=== PATIENT | female | born 1990 | race American Indian/Alaskan Native ===

== ENCOUNTER 2017-05-25 21:16 | Emergency (ER) | payer MEDICARE ==
[2017-05-25 22:29] LABS: Basophils % (Auto) 0.6 % (0.0-1.8); Eosinophils % (Auto) 0.8 % (0.0-4.3); Hematocrit 37.8 % (30.3-42.9); Hemoglobin 11.7 gm/dl (10.1-14.3); Mean Corpuscular HGB Conc 31 % (30-34); Mean Corpuscular Volume 74 fl (79-97); Platelet Count 254 K/mm3 (140-440); Red Cell Distribution Width 15.4 % (13.2-15.2); White Blood Count 9.5 K/mm3 (4.5-11.0)
[2017-05-25 22:31] LABS: Mean Corpuscular Hemoglobin 23 pg (28-32)
[2017-05-25 22:40] LABS: Anion Gap 18 mmol/L; Blood Urea Nitrogen 8 mg/dL (7-17); Calcium 8.9 mg/dL (8.4-10.2); Carbon Dioxide 23 mmol/L (22-30); Chloride 101.2 mmol/L (98-107); Glucose 86 mg/dL (65-100); Potassium 4.5 mmol/L (3.6-5.0); Sodium 138 mmol/L (137-145)
[2017-05-25 23:43] LABS: Urine Drugs of Abuse Note Disclamer
[2017-05-25 23:59] LABS: Bilirubin,Urine NEG (Negative); Blood,Urine LG (Negative); Ketones,Urine NEG (Negative); Leukocyte Esterase,Urine TR (Negative); Mucus,Urine 3+ /HPF; Nitrite,Urine NEG (Negative); Protein,Urine <15 mg/dL mg/dL (Negative); Urobilinogen,Urine < 2.0 mg/dL (<2.0)
--- NOTE | 2017-05-26 05:52 | Emergency Department Report ---
ED Psych HPI - General Chief Complaint: Psych Stated Complaint: SUICIDAL/IDEAS TO HURT OTHERS Time Seen by Provider: 05/26/17 01:17 Source: family Mode of arrival: Ambulatory Limitations: Other (MR) - History of Present Illness Initial Comments: 26-year-old female with a past medical history of MR, schizoaffective disorder, and psychosis presents to the hospital with combative behavior and suicidal and homicidal ideation. Her cant hooker/sister is at the bedside. Apparently patient pulled out a knife and threatened to kill her family member in herself. Patient is here voices telling her to kill herself and others. Patient's behavior has been escalating over the last several days despite compliance with medication. No physical complaints reported. - Related Data Allergies Allergy/AdvReac Type Severity Reaction Status Date / Time No Known Allergies Allergy Verified 05/25/17 21:26 ED Review of Systems ROS: Stated complaint: SUICIDAL/IDEAS TO HURT OTHERS Other details as noted in HPI Comment: All other systems reviewed and negative Other: Constitutional: No fevers chills Neck: Denies pain Respiratory: Denies cough wheezing shortness of breath Cardiovascular: Denies chest pain, palpitations, syncope GI: Denies abdominal pain, nausea, vomiting, diarrhea : Denies dysuria Musculoskeletal: Denies back pain Skin: Denies rash, lesions, erythema Neurologic: Denies headache, numbness, weakness Psychiatric: as per hpi ED Past Medical Hx - Past Medical History Previous Medical History?: Yes Hx Psychiatric Treatment: Yes (MR / SCHIZO AFFECTIVE / PSYCHOSIS) - Surgical History Past Surgical History?: No - Social History Smoking Status: Never Smoker Substance Use Type: None ED Physical Exam - General Limitations: No Limitations - Other Other exam information: General: No limitations, patient is alert in no acute distress Head exam: Atraumatic, normocephalic Eyes exam: Normal appearance ENT: Moist mucous membrane, normal oropharynx Neck exam: Normal inspection, full range of motion, no meningismus nontender Respiratory exam: Clear to auscultation bilateral, no wheezes, rales, crackles Cardiovascular: Normal rate and rhythm, normal heart sounds Abdomen: Soft, nondistended, and nontender, with normal bowel sounds, no rebound, or guarding Extremity: Full range of motion normal inspection no deformity Back: Normal Inspection, full range of motion, no tenderness Neurologic: Alert, , cranial nerves intact, no motor or sensory deficit Psychiatric: normal affect, normal mood Skin: Warm, dry, intact ED Course Vital Signs 05/25/17 05/26/17 05/26/17 21:26 01:00 01:36 Temperature 98.3 F 98.6 F Pulse Rate 55 L 56 L Respiratory 16 18 18 Rate Blood Pressure 130/81 119/71 O2 Sat by Pulse 100 100 99 Oximetry - Reevaluation(s) Reevaluation #1: 05/26/17 PT and stable and cooperative and ED ED Medical Decision Making - Lab Data Result diagrams: 05/25/17 22:12 05/25/17 22:12 Lab Results 05/25/17 05/25/17 05/25/17 Range/Units 22:12 22:12 22:12 WBC 9.5 (4.5-11.0) K/mm3 RBC 5.10 H (3.65-5.03) M/mm3 Hgb 11.7 (10.1-14.3) gm/dl Hct 37.8 (30.3-42.9) % MCV 74 L (79-97) fl MCH 23 L (28-32) pg MCHC 31 (30-34) % RDW 15.4 H (13.2-15.2) % Plt Count 254 (140-440) K/mm3 Lymph % (Auto) 44.4 H (13.4-35.0) % [place] % (Auto) 5.6 (0.0-7.3) % Eos % (Auto) 0.8 (0.0-4.3) % Baso % (Auto) 0.6 (0.0-1.8) % Lymph # 4.2 (1.2-5.4) K/mm3 [place] # 0.5 (0.0-0.8) K/mm3 Eos # 0.1 (0.0-0.4) K/mm3 Baso # 0.1 (0.0-0.1) K/mm3 Seg Neutrophils % 48.6 (40.0-70.0) % Seg Neutrophils # 4.6 (1.8-7.7) K/mm3 Sodium 138 (137-145) mmol/L Potassium 4.5 (3.6-5.0) mmol/L Chloride 101.2 (98-107) mmol/L Carbon Dioxide 23 (22-30) mmol/L Anion Gap 18 mmol/L BUN 8 (7-17) mg/dL Creatinine 0.5 L (0.7-1.2) mg/dL Estimated GFR > 60 ml/min BUN/Creatinine Ratio 16.00 % Glucose 86 (65-100) mg/dL Calcium 8.9 (8.4-10.2) mg/dL Urine Color (Yellow) Urine Turbidity (Clear) Urine pH (5.0-7.0) Ur Specific [place] (1.003-1.030) Urine Protein (Negative) mg/dL Urine Glucose (UA) (Negative) mg/dL Urine Ketones (Negative) mg/dL Urine Blood (Negative) Urine Nitrite (Negative) Urine Bilirubin (Negative) Urine Urobilinogen (<2.0) mg/dL Ur Leukocyte Esterase (Negative) Urine WBC (Auto) (0.0-6.0) /HPF Urine RBC (Auto) (0.0-6.0) /HPF U Epithel Cells (Auto) (0-13.0) /HPF Hyaline Casts /LPF Urine Mucus /HPF Urine Opiates Screen Urine Methadone Screen Ur Barbiturates Screen Ur Phencyclidine Scrn Ur Amphetamines Screen U Benzodiazepines Scrn Urine Cocaine Screen U Marijuana (THC) Screen Drugs of Abuse Note Plasma/Serum Alcohol < 0.01 (0-0.07) gm% 05/25/17 05/25/17 Range/Units 23:11 23:11 WBC (4.5-11.0) K/mm3 RBC (3.65-5.03) M/mm3 Hgb (10.1-14.3) gm/dl Hct (30.3-42.9) % MCV (79-97) fl MCH (28-32) pg MCHC (30-34) % RDW (13.2-15.2) % Plt Count (140-440) K/mm3 Lymph % (Auto) (13.4-35.0) % [place] % (Auto) (0.0-7.3) % Eos % (Auto) (0.0-4.3) % Baso % (Auto) (0.0-1.8) % Lymph # (1.2-5.4) K/mm3 [place] # (0.0-0.8) K/mm3 Eos # (0.0-0.4) K/mm3 Baso # (0.0-0.1) K/mm3 Seg Neutrophils % (40.0-70.0) % Seg Neutrophils # (1.8-7.7) K/mm3 Sodium (137-145) mmol/L Potassium (3.6-5.0) mmol/L Chloride (98-107) mmol/L Carbon Dioxide (22-30) mmol/L Anion Gap mmol/L BUN (7-17) mg/dL Creatinine (0.7-1.2) mg/dL Estimated GFR ml/min BUN/Creatinine Ratio % Glucose (65-100) mg/dL Calcium (8.4-10.2) mg/dL Urine Color Yellow (Yellow) Urine Turbidity Clear (Clear) Urine pH 5.0 (5.0-7.0) Ur Specific [place] 1.024 (1.003-1.030) Urine Protein <15 mg/dl (Negative) mg/dL Urine Glucose (UA) Neg (Negative) mg/dL Urine Ketones Neg (Negative) mg/dL Urine Blood Lg (Negative) Urine Nitrite Neg (Negative) Urine Bilirubin Neg (Negative) Urine Urobilinogen < 2.0 (<2.0) mg/dL Ur Leukocyte Esterase Tr (Negative) Urine WBC (Auto) 3.0 (0.0-6.0) /HPF Urine RBC (Auto) 24.0 (0.0-6.0) /HPF U Epithel Cells (Auto) 5.0 (0-13.0) /HPF Hyaline Casts 1 /LPF Urine Mucus 3+ /HPF Urine Opiates Screen Presumptive negative Urine Methadone Screen Presumptive negative Ur Barbiturates Screen Presumptive negative Ur Phencyclidine Scrn Presumptive negative Ur Amphetamines Screen Presumptive negative U Benzodiazepines Scrn Presumptive negative Urine Cocaine Screen Presumptive negative U Marijuana (THC) Screen Presumptive negative Drugs of Abuse Note Disclamer Plasma/Serum Alcohol (0-0.07) gm% - Medical Decision Making Patient medically clear for psychiatric transfer and admission. 1013 and transfer forms have been signed. Current medications will be continued pending psychiatric treatment - Differential Diagnosis psychosis,, MR, schizoaffective disorder, suicidal ideation, homicidal idea Critical Care Time: No Critical care attestation.: If time is entered above; I have spent that time in minutes in the direct care of this critically ill patient, excluding procedure time. ED Disposition Clinical Impression: Psychosis, Mental retardation, Schizoaffective disorder, Suicidal ideation, Homicidal ideations Disposition: DC/TX-65 PSY HOSP/PSY UNIT Is pt being admited?: No Does the pt Need Aspirin: No Condition: Stable Time of Disposition: 05:52 (awaiting acceptance)
[2017-05-26 08:28] VITALS: BP 116/57
[2017-05-26] MEDS ORDERED: NON-FORMULARY (Risperidone [Risperdal] 2 MG) PO SCH (10:00)
[2017-05-26] MEDS ORDERED: RisperDAL PO SCH (10:00)
--- NOTE | 2017-05-26 15:07 | Consultation ---
History of Present Illness - Reason for Consult Consult date: 05/26/17 Reason for consult: Mental Health Evaluation Requesting physician: BECKY RAMÍREZ - Chief Complaint Chief complaint: "I was going to use a knife" - History of Present Psychiatric Illness 26-year-old female with a past medical history of MR, schizoaffective disorder, and psychosis presents to the hospital with combative behavior and suicidal and homicidal ideation. Today patient calm and cooperative, but tangential during the assessment. She was talking low and had to be redirected multiple time to keep her engaged in the conversation. She stated that voices were telling her to kill herself and some of her family prior to being admitted to [facility]. She stated that she would have used a knife. She kept staying, "Do you hear that" throughout the conversation. She denies VH's and depression. She denies recreational drug use and alcohol consumption (etoh). Medications and Allergies Allergies Allergy/AdvReac Type Severity Reaction Status Date / Time No Known Allergies Allergy Verified 05/25/17 21:26 Home Medications Medication Instructions Recorded Confirmed Last Taken Type risperiDONE [RisperDAL] 2 mg PO QDAY 05/26/17 05/26/17 Unknown History Past psychiatric history - Past Medical History Past Medical History: hypertension Past Surgical History: No surgical history - past Psychiatric treatment and history Psych: Psychosis psychiatric treatment history: [facility] for inpatient services. [facility]x. - Social History Social history: lives with family Mental Status Exam - Vital signs Last Vital Signs Temp 98.3 F 05/26/17 08:26 Pulse 81 05/26/17 08:26 Resp 20 05/26/17 08:26 BP 116/57 05/26/17 08:26 Pulse Ox 100 05/26/17 08:26 - Exam Narrative exam: ROS: (+) psychotic MSE: Appearance: calm, cooperative Behavior: regular eye contact Speech: low rate and tone Mood: "okay" Affect: labile Thought Process: tangential Thought Content: denies VH's Motor Activity: lying in bed Cognition: A/Ox 3 Insight: limited Judgment: limited Results Result Diagrams: 05/25/17 22:12 05/25/17 22:12 Abnormal lab results 05/25/17 05/25/17 Range/Units 22:12 22:12 RBC 5.10 H (3.65-5.03) M/mm3 MCV 74 L (79-97) fl MCH 23 L (28-32) pg RDW 15.4 H (13.2-15.2) % Lymph % (Auto) 44.4 H (13.4-35.0) % Creatinine 0.5 L (0.7-1.2) mg/dL All other labs normal. Assessment and Plan Assessment and plan: Impression: Historical Dx: Schizoaffective DO. Unspecified Mood DO with psychotic features. Today patient calm and cooperative, but tangential during the assessment. Per ER note. patient has DDx: R/O Bipolar Recommendation/Plan: Continue 1013 with placement to [facility] today.
== END 2017-05-26 12:00 ==
LOC: ED 21:16 → EEVIPCON 21:16 → ED 05-26 12:00
DX: R45.851 Suicidal ideations (principal); R45.850 Homicidal ideations; F20.9 Schizophrenia, unspecified; F29 Unspecified psychosis not due to a substance or known physiological condition; F79 Unspecified intellectual disabilities
CPT/HCPCS: 36415; 80048; 80307; 81001; 81025; 85025; 99285; G0480; 80320

== ENCOUNTER 2019-02-10 12:10 | Emergency (ER) | payer MEDICARE ==
[2019-02-10 13:50] LABS: Bacteria,Urine 1+ /HPF (Negative); Bilirubin,Urine NEG (Negative); Blood,Urine NEG (Negative); Color,Urine Yellow (Yellow); Mucus,Urine 3+ /HPF; Protein,Urine <15 mg/dL mg/dL (Negative); Urobilinogen,Urine < 2.0 mg/dL (<2.0)
[2019-02-10 13:54] LABS: Amphetamine Screen,Urine PRESUMPTIVE NEGATIVE; Benzodiazepines Screen,Urine PRESUMPTIVE NEGATIVE; Cannabinoid Screen,Urine PRESUMPTIVE NEGATIVE; Cocaine Screen,Urine PRESUMPTIVE NEGATIVE; Methadone Screen,Urine PRESUMPTIVE NEGATIVE; Opiate Screen,Urine PRESUMPTIVE NEGATIVE
--- NOTE | 2019-02-10 14:25 | Emergency Department Report ---
HPI - General Chief Complaint: Psych Time Seen by Provider: 02/10/19 13:37 - HPI HPI: 28-year-old -Burmese female presents to the emergency department with complaint of suicidal ideations and auditory hallucinations. She says that she consistently hears the same voices and they are telling her to kill herself. She also says that they are telling her that they are going to "child molest me." She denies any current visual hallucinations. She has a known history of schizophrenia. She could not give me the list of her medications but says that she has been out of them for the past 3 or 4 days. ED Past Medical Hx - Past Medical History Hx Psychiatric Treatment: Yes (MR / SCHIZO AFFECTIVE / PSYCHOSIS) - Surgical History Past Surgical History?: No - Social History Smoking Status: Current Every Day Smoker - Medications Home Medications: Home Medications Medication Instructions Recorded Confirmed Last Taken Type risperiDONE [RisperDAL] 2 mg PO QDAY 05/26/17 05/26/17 Unknown History ED Review of Systems ROS: Stated complaint: SUICIDAL IDEATION Other details as noted in HPI Comment: All other systems reviewed and negative Constitutional: denies: chills, fever Eyes: denies: eye pain, vision change ENT: denies: ear pain, throat pain Respiratory: denies: cough, shortness of breath Cardiovascular: denies: chest pain, palpitations Gastrointestinal: denies: abdominal pain, vomiting Genitourinary: denies: dysuria, discharge Musculoskeletal: denies: back pain, arthralgia Skin: denies: rash, lesions Neurological: denies: headache, weakness Psychiatric: auditory hallucinations, suicidal thoughts Physical Exam - Physical Exam Vital Signs: Vital Signs 02/10/19 02/10/19 13:20 13:30 Temperature 98.6 F 98.6 F Pulse Rate 52 L 73 Respiratory 18 Rate Blood Pressure 111/62 Blood Pressure 131/79 [Right] O2 Sat by Pulse 98 Oximetry Physical Exam: GENERAL: The patient is well-developed well-nourished. HENT: Normocephalic. Atraumatic. Patient has moist mucous membranes. EYES: Extraocular motions are intact. NECK: Supple. Trachea is midline. CHEST/LUNGS: Clear to auscultation. There is no respiratory distress noted. HEART/CARDIOVASCULAR: Regular. There is no tachycardia. There is no murmur. ABDOMEN: Abdomen is soft, nontender. Patient has normal bowel sounds. There is no abdominal distention. SKIN: Skin is warm and dry. NEURO: The patient is awake, alert, and oriented. The patient is cooperative. The patient has no focal neurologic deficits. The patient has normal speech. MUSCULOSKELETAL: There is no tenderness or deformity. There is no evidence of acute injury. ED Course Vital Signs 02/10/19 02/10/19 13:20 13:30 Temperature 98.6 F 98.6 F Pulse Rate 52 L 73 Respiratory 18 Rate Blood Pressure 111/62 Blood Pressure 131/79 [Right] O2 Sat by Pulse 98 Oximetry ED Medical Decision Making - Lab Data Result diagrams: 02/10/19 14:53 02/10/19 14:53 - Medical Decision Making Patient presents to the emergency department with command hallucinations telling her to kill herself and also saying to her that she is going to be molested. For these reasons, the patient has been made a 1013. She has a history of schizophrenia or schizoaffective disorder and appears to be having some acute psychosis. She admits to medication noncompliance the past few days. Labs have been mostly unremarkable. Vital signs stable throughout her ED course. The patient is medically cleared for psychiatric placement. - Differential Diagnosis schizophrenia, schizoaffective, bipolar disorder, substance abuse Critical Care Time: No Critical care attestation.: If time is entered above; I have spent that time in minutes in the direct care of this critically ill patient, excluding procedure time. ED Disposition Clinical Impression: Acute psychosis, Suicidal ideations Disposition: DC/TX-65 PSY HOSP/PSY UNIT Is pt being admited?: No Condition: Stable Referrals: LUIS MARTINEZ MD [Primary Care Provider] - 3-5 Days Time of Disposition: 18:11
[2019-02-10 15:07] LABS: Basophils # (Auto) 0.1 K/mm3 (0.0-0.1); Basophils % (Auto) 0.5 % (0.0-1.8); Eosinophils # (Auto) 0.1 K/mm3 (0.0-0.4); Eosinophils % (Auto) 1.2 % (0.0-4.3); Hematocrit 35.9 % (30.3-42.9); Hemoglobin 11.5 gm/dl (10.1-14.3); Lymphocytes # (Auto) 2.7 K/mm3 (1.2-5.4); Lymphocytes % (Auto) 23.5 % (13.4-35.0); Mean Corpuscular HGB Conc 32 % (30-34); Mean Corpuscular Volume 73 fl (79-97); Monocytes # (Auto) 0.6 K/mm3 (0.0-0.8); Monocytes % (Auto) 5.5 % (0.0-7.3); Platelet Count 302 K/mm3 (140-440); Red Cell Distribution Width 14.5 % (13.2-15.2)
[2019-02-10 15:32] LABS: BUN/Creatinine Ratio 10; Blood Urea Nitrogen 8 mg/dL (7-17); Calcium 9.3 mg/dL (8.4-10.2); Hemolysis Index 6
[2019-02-10 19:04] LABS: HCG Qualitative,Urine Negative (Negative)
[2019-02-10 20:32] VITALS: BP 90/52
== END 2019-02-10 22:10 ==
LOC: ED 12:10
DX: F20.9 Schizophrenia, unspecified (principal); F17.200 Nicotine dependence, unspecified, uncomplicated
CPT/HCPCS: 36415; 80048; 80307; 81001; 81025; 85025; 99285; G0480; 80320

== ENCOUNTER 2019-09-15 15:26 | Emergency (ER) | payer MEDICARE ==
--- NOTE | 2019-09-15 16:19 | Emergency Department Report ---
ED Psych HPI - General Chief Complaint: Psych Stated Complaint: PSYCH/SI Time Seen by Provider: 09/15/19 15:52 Source: EMS Mode of arrival: Stretcher - History of Present Illness Initial Comments: CC: "I am hearing voices." HPI: Anna Marie is a 28 yo female with hx of autism, intellectual disability, schizoaffective disorder who presents with "hearing voices". She arrived via EMS. She is a poor historian. She speaks about subjects of a sexual nature. She speaks of oral sex and lesbianism. She answers limited questions. She would not answer questions regarding suicidal ideation or homicidal ideation. She denies pain. She did state that she lives with her sister Marly. Fortunately, our mental health shell press operator is familiar with Anna Marie. She has exhibited impulsivity and violent behavior. Complaint: other (auditory hallucinations) -: unknown Associated Psychiatric Symptoms: auditory hallucinations History of same: Yes Quality: constant Improves With: none Worsens With: none Context: other (unknown, hx of several psychiatric hospitalizations ) Associated Symptoms: denies other symptoms Treatments Prior to Arrival: none If Self Harm: other ("hearing voices") - Related Data Home Medications Medication Instructions Recorded Confirmed Last Taken risperiDONE [RisperDAL] 2 mg PO QDAY 05/26/17 02/10/19 Unknown Allergies Allergy/AdvReac Type Severity Reaction Status Date / Time No Known Allergies Allergy Verified 05/25/17 21:26 ED Review of Systems ROS: Stated complaint: PSYCH/SI Other details as noted in HPI Comment: All other systems reviewed and negative Constitutional: denies: fever, malaise Respiratory: denies: cough Cardiovascular: denies: chest pain ED Past Medical Hx - Past Medical History Previous Medical History?: Yes Hx Psychiatric Treatment: Yes (MR / SCHIZO AFFECTIVE / PSYCHOSIS) - Social History Smoking Status: Current Every Day Smoker Substance Use Type: None - Medications Home Medications: Home Medications Medication Instructions Recorded Confirmed Last Taken Type risperiDONE [RisperDAL] 2 mg PO QDAY 05/26/17 02/10/19 Unknown History ED Physical Exam - General Limitations: No Limitations General appearance: alert, in no apparent distress, other (calm, cooperative with commands, ) - Head Head exam: Present: atraumatic, normocephalic - Eye Eye exam: Present: normal appearance - ENT ENT exam: Present: mucous membranes moist - Neck Neck exam: Present: normal inspection, full ROM - Respiratory Respiratory exam: Present: normal lung sounds bilaterally. Absent: respiratory distress, wheezes, rales, rhonchi - Cardiovascular Cardiovascular Exam: Present: regular rate, normal rhythm, normal heart sounds. Absent: systolic murmur, diastolic murmur, rubs, gallop - GI/Abdominal GI/Abdominal exam: Present: soft, normal bowel sounds. Absent: distended, tenderness, guarding, rebound - Extremities Exam Extremities exam: Present: normal inspection - Neurological Exam Neurological exam: Present: alert, oriented X3 - Psychiatric Psychiatric exam: Present: other (labile mood, beomes excited when she speaks of the voices) - Skin Skin exam: Present: warm, dry, intact, normal color. Absent: rash ED Course Vital Signs 09/15/19 09/15/19 09/15/19 15:42 16:11 20:30 Temperature 98.8 F 98.0 F 98.6 F Pulse Rate 66 66 83 Respiratory 18 18 18 Rate Blood Pressure 113/71 113/71 133/73 [Left] O2 Sat by Pulse 97 98 97 Oximetry 09/16/19 09/16/19 09/16/19 01:01 01:28 08:00 Temperature 98.8 F 98.3 F Pulse Rate 67 65 Respiratory 20 18 16 Rate Blood Pressure 124/66 130/67 [Left] O2 Sat by Pulse 98 98 Oximetry 09/16/19 16:39 Temperature 98.8 F Pulse Rate 62 Respiratory 16 Rate Blood Pressure 134/73 [Left] O2 Sat by Pulse 98 Oximetry ED Medical Decision Making - Lab Data Result diagrams: 09/15/19 16:10 09/15/19 16:10 Laboratory Results - last 24 hr 09/15/19 09/15/19 09/15/19 16:10 16:10 16:10 WBC RBC Hgb Hct MCV MCH MCHC RDW Plt Count Lymph % (Auto) [place] % (Auto) Eos % (Auto) Baso % (Auto) Lymph # [place] # Eos # Baso # Seg Neutrophils % Seg Neutrophils # Sodium Potassium Chloride Carbon Dioxide Anion Gap BUN Creatinine Estimated GFR BUN/Creatinine Ratio Glucose Calcium Urine Color Yellow Urine Turbidity Clear Urine pH 7.0 Ur Specific [place] 1.008 Urine Protein <15 mg/dl Urine Glucose (UA) Neg Urine Ketones Neg Urine Blood Neg Urine Nitrite Neg Urine Bilirubin Neg Urine Urobilinogen < 2.0 Ur Leukocyte Esterase Neg Urine WBC (Auto) < 1.0 Urine RBC (Auto) 1.0 U Epithel Cells (Auto) 2.0 Urine Bacteria (Auto) 1+ Salicylates < 0.3 L Urine Opiates Screen Presumptive negative Urine Methadone Screen Presumptive negative Acetaminophen Ur Barbiturates Screen Presumptive negative Ur Phencyclidine Scrn Presumptive negative Ur Amphetamines Screen Presumptive negative U Benzodiazepines Scrn Presumptive negative Urine Cocaine Screen Presumptive negative U Marijuana (THC) Screen Presumptive negative Drugs of Abuse Note Disclamer Plasma/Serum Alcohol 09/15/19 09/15/19 09/15/19 16:10 16:10 16:10 WBC RBC Hgb Hct MCV MCH MCHC RDW Plt Count Lymph % (Auto) [place] % (Auto) Eos % (Auto) Baso % (Auto) Lymph # [place] # Eos # Baso # Seg Neutrophils % Seg Neutrophils # Sodium 134 L Potassium 4.3 Chloride 99.5 Carbon Dioxide 23 Anion Gap 16 BUN 6 L Creatinine 0.6 L Estimated GFR > 60 BUN/Creatinine Ratio 10 Glucose 95 Calcium 9.4 Urine Color Urine Turbidity Urine pH Ur Specific [place] Urine Protein Urine Glucose (UA) Urine Ketones Urine Blood Urine Nitrite Urine Bilirubin Urine Urobilinogen Ur Leukocyte Esterase Urine WBC (Auto) Urine RBC (Auto) U Epithel Cells (Auto) Urine Bacteria (Auto) Salicylates Urine Opiates Screen Urine Methadone Screen Acetaminophen < 5.0 L Ur Barbiturates Screen Ur Phencyclidine Scrn Ur Amphetamines Screen U Benzodiazepines Scrn Urine Cocaine Screen U Marijuana (THC) Screen Drugs of Abuse Note Plasma/Serum Alcohol < 0.01 09/15/19 16:10 WBC 10.2 RBC 5.01 Hgb 11.9 Hct 36.7 MCV 73 L MCH 24 L MCHC 32 RDW 15.0 Plt Count 280 Lymph % (Auto) 28.0 [place] % (Auto) 8.0 H Eos % (Auto) 3.6 Baso % (Auto) 0.2 Lymph # 2.9 [place] # 0.8 Eos # 0.4 Baso # 0.0 Seg Neutrophils % 60.2 Seg Neutrophils # 6.1 Sodium Potassium Chloride Carbon Dioxide Anion Gap BUN Creatinine Estimated GFR BUN/Creatinine Ratio Glucose Calcium Urine Color Urine Turbidity Urine pH Ur Specific [place] Urine Protein Urine Glucose (UA) Urine Ketones Urine Blood Urine Nitrite Urine Bilirubin Urine Urobilinogen Ur Leukocyte Esterase Urine WBC (Auto) Urine RBC (Auto) U Epithel Cells (Auto) Urine Bacteria (Auto) Salicylates Urine Opiates Screen Urine Methadone Screen Acetaminophen Ur Barbiturates Screen Ur Phencyclidine Scrn Ur Amphetamines Screen U Benzodiazepines Scrn Urine Cocaine Screen U Marijuana (THC) Screen Drugs of Abuse Note Plasma/Serum Alcohol - Medical Decision Making Anna Marie is a 28 yo female with hx of autism, intellectual disability, schizoaffective disorder according to the EMR. Our MH shell press operator warned me and staff that she has hx of violence and impulsivity. She is currently calm. She is medically clear for psychiatric care. Awaiting treatment recommendations from our psychiatric team. She is here on voluntary hold whereas she has contacted EMS for assistance. I have reviewed labs obtained, cbc BMP serum tox UDS UA within normal limits. She is medically clear for psychiatric care. Ms. Washington transferred to [facility] for inpatient psychiatric care. Critical care attestation.: If time is entered above; I have spent that time in minutes in the direct care of this critically ill patient, excluding procedure time. ED Disposition Clinical Impression: Acute psychosis, Schizoaffective disorder, Autism Disposition: DC/TX-65 PSY HOSP/PSY UNIT Is pt being admited?: No Does the pt Need Aspirin: No Condition: Stable Referrals: PRIMARY CARE, [Primary Care Provider] - 3-5 Days
[2019-09-15 16:29] LABS: Bacteria,Urine 1+ /HPF (Negative); Bilirubin,Urine NEG (Negative); Blood,Urine NEG (Negative); Color,Urine Yellow (Yellow); Protein,Urine <15 mg/dL mg/dL (Negative); Urobilinogen,Urine < 2.0 mg/dL (<2.0); WBC,Urine < 1.0 /HPF (0.0-6.0)
[2019-09-15 16:31] LABS: Basophils % (Auto) 0.2 % (0.0-1.8); Eosinophils # (Auto) 0.4 K/mm3 (0.0-0.4); Eosinophils % (Auto) 3.6 % (0.0-4.3); Hematocrit 36.7 % (30.3-42.9); Hemoglobin 11.9 gm/dl (10.1-14.3); Lymphocytes # (Auto) 2.9 K/mm3 (1.2-5.4); Mean Corpuscular HGB Conc 32 % (30-34); Mean Corpuscular Volume 73 fl (79-97); Monocytes # (Auto) 0.8 K/mm3 (0.0-0.8); Platelet Count 280 K/mm3 (140-440); Red Blood Count 5.01 M/mm3 (3.65-5.03)
[2019-09-15 16:35] LABS: Amphetamine Screen,Urine PRESUMPTIVE NEGATIVE; Benzodiazepines Screen,Urine PRESUMPTIVE NEGATIVE; Cannabinoid Screen,Urine PRESUMPTIVE NEGATIVE; Cocaine Screen,Urine PRESUMPTIVE NEGATIVE; Methadone Screen,Urine PRESUMPTIVE NEGATIVE; Opiate Screen,Urine PRESUMPTIVE NEGATIVE
[2019-09-15 16:48] LABS: BUN/Creatinine Ratio 10; Blood Urea Nitrogen 6 mg/dL (7-17); Calcium 9.4 mg/dL (8.4-10.2); Hemolysis Index 4
[2019-09-16 16:42] VITALS: BP 134/73
== END 2019-09-16 17:58 ==
LOC: ED 15:26
DX: F25.9 Schizoaffective disorder, unspecified (principal); F84.0 Autistic disorder; F17.200 Nicotine dependence, unspecified, uncomplicated; Z79.899 Other long term (current) drug therapy
CPT/HCPCS: 36415; 80048; 80307; 80320; 81001; 85025; G0480

== ENCOUNTER 2022-03-17 19:36 | Emergency (ER) | payer MEDICARE ==
[2022-03-18 05:59] LABS: Basophils # (Auto) 0.1 K/mm3 (0.0-0.1); Basophils % (Auto) 0.4 % (0.0-1.8); Hemoglobin 11.6 gm/dl (10.1-14.3); Lymphocytes # (Auto) 1.5 K/mm3 (1.2-5.4); Lymphocytes % (Auto) 7.5 % (13.4-35.0); Mean Corpuscular HGB Conc 31 % (30-34); Mean Corpuscular Volume 70 fl (79-97); Monocytes # (Auto) 1.3 K/mm3 (0.0-0.8); Monocytes % (Auto) 6.5 % (0.0-7.3); Platelet Count 356 K/mm3 (140-440); Red Blood Count 5.26 M/mm3 (3.65-5.03); Red Cell Distribution Width 15.2 % (13.2-15.2)
[2022-03-18 06:17] LABS: Albumin 4.9 g/dL (3.9-5); Calcium 9.4 mg/dL (8.4-10.2)
[2022-03-18] MEDS ORDERED: SODIUM CHLORIDE 0.9% 1000 ML 1,000 ML IV ONE ×2 (06:58→10:16)
--- NOTE | 2022-03-18 06:58 | Emergency Department Report ---
HPI - General Chief Complaint: Dyspnea/Respdistress Time Seen by Provider: 03/18/22 06:43 - HPI HPI: Room 35 The patient is a 31-year-old female present with a chief complaint of "my eyes kept rowing." The patient was reportedly dropped off in the emergency department by EMS but did not give report. The patient tells me she came to the emergency department because she "walked to the store, looked up to the froylan and then could not walk" because her right thigh was hurting. Patient states she had pain in her right thigh after a fall yesterday. Patient denies having any other complaints. The patient states her sister called EMS and that is how she arrived to the emergency department. I attempted to contact the Sister Lilia at [phone] however there was no answer and a voicemail was left at the time of this dictation. Patient denies history of fever or cough ED Past Medical Hx - Past Medical History Previous Medical History?: Yes Hx Psychiatric Treatment: Yes (MR / [facility]O AFFECTIVE / PSYCHOSIS) - Surgical History Past Surgical History?: No - Family History Family history: no significant - Social History Smoking Status: Current Some Day Smoker Substance Use Type: None (Denies illicit drug use) - Medications Home Medications: Home Medications Medication Instructions Recorded Confirmed Last Taken Type risperiDONE [RisperDAL] 2 mg PO QDAY 05/26/17 02/10/19 Unknown History Albuterol Mdi (or & Nicu Only) 2 puff IH QID PRN #8.5 gram 03/18/22 Unknown Rx [ProAir HFA Inhaler] levoFLOXacin [Levaquin TAB] 500 mg PO QDAY #7 tablet 03/18/22 Unknown Rx ED Review of Systems ROS: Stated complaint: JOSY Other details as noted in HPI Constitutional: denies: fever Eyes: as per HPI ENT: denies: throat pain Respiratory: no symptoms reported. denies: cough Cardiovascular: denies: chest pain Endocrine: no symptoms reported Gastrointestinal: denies: abdominal pain Genitourinary: denies: dysuria Musculoskeletal: denies: back pain Neurological: denies: headache Physical Exam - Physical Exam Vital Signs: Vital Signs 03/17/22 20:57 Temperature 98 F Pulse Rate 102 H Respiratory 16 Rate Blood Pressure 110/62 O2 Sat by Pulse 98 Oximetry Physical Exam: GENERAL: The patient is well-nourished female lying on stretcher not appearing to be in acute distress. [] HEENT: Normocephalic. Atraumatic. Extraocular motions are intact. Patient has moist mucous membranes. NECK: Supple. Trachea midline CHEST/LUNGS: Clear to auscultation. There is no respiratory distress noted. HEART/CARDIOVASCULAR: Regular. There is no tachycardia. There is no gallop rub or murmur. ABDOMEN: Abdomen is soft, nontender. Patient has normal bowel sounds. There is no abdominal distention. SKIN: There is no rash. There is no edema. There is no diaphoresis. There is no ecchymosis or lesions appreciated on the right thigh NEURO: The patient is awake, alert, and oriented. The patient is cooperative. The patient has no focal neurologic deficits. The patient has normal speech. GCS 15 MUSCULOSKELETAL: There is no tenderness to palpation of the right thigh. There is no evidence of acute injury. ED Course Vital Signs 03/17/22 20:57 Temperature 98 F Pulse Rate 102 H Respiratory 16 Rate Blood Pressure 110/62 O2 Sat by Pulse 98 Oximetry - Consultations Consultation #1: 03/18/22 06:53 Attempted to contact patient's Sister Lilia at [phone]-there was no answer however voicemail was left 03/18/22 13:21 The patient's sister calls back and states that the patient had an episode of shortness of breath which is why the patient was brought into the emergency department. ED Medical Decision Making - Lab Data Result diagrams: 03/18/22 05:42 03/18/22 05:42 Laboratory Tests 03/18/22 03/18/22 03/18/22 05:42 05:42 Unknown WBC 19.8 H RBC 5.26 H Hgb 11.6 Hct 37.0 MCV 70 L MCH 22 L MCHC 31 RDW 15.2 Plt Count 356 Lymph % (Auto) 7.5 L [place] % (Auto) 6.5 Eos % (Auto) 0.0 Baso % (Auto) 0.4 Lymph # (Auto) 1.5 [place] # (Auto) 1.3 H Eos # (Auto) 0.0 Baso # (Auto) 0.1 Seg Neutrophils % 85.6 H Seg Neutrophils # 16.9 H Sodium 140 Potassium 3.9 Chloride 105.8 Carbon Dioxide 20 L Anion Gap 18 BUN 22 H Creatinine 1.7 H Estimated GFR 43 BUN/Creatinine Ratio 13 Glucose 114 H Calcium 9.4 Total Bilirubin 0.50 AST 759 H ALT 86 H Alkaline Phosphatase 90 Total Protein 8.8 H Albumin 4.9 Albumin/Globulin Ratio 1.3 Urine Color [place] Urine Turbidity Slightly cloudy Urine pH 6.0 Ur Specific [place] 1.010 Urine Protein 100 mg/dl Urine Glucose (UA) Negative Urine Ketones Negative Urine Blood Large A Urine Nitrite Negative Ur Reducing Substances Not Reportable Urine Bilirubin Negative Urine Ictotest Not Reportable Urine Urobilinogen < 2.0 Ur Leukocyte Esterase Small Urine WBC (Auto) 8.0 H Urine RBC (Auto) 6.0 U Epithel Cells (Auto) 5.0 Urine Bacteria (Auto) 2+ Urine WBC Clumps 3+ Urine Mucus 1+ Urine HCG, Qual Negative - Radiology Data Radiology results: report reviewed (Chest x-ray, VQ scan), image reviewed (Chest x-ray, VQ scan) interpreted by me: Chest x-ray-no definite focal infiltrates, no pneumothorax [address] [address] Nuclear Medicine Report Signed Patient: AMBROSE BANDA MR#: [id number] : 1990 Acct:[id number] Age/Sex: 31 / F ADM Date: 03/17/22 Loc: ED Attending Dr: Ordering Physician: SAMSON GR MD Date of Service: 03/18/22 Procedure(s): NM perfusion only lung scan Accession Number(s): [id number] cc: SAMSON GR MD NUCLEAR MEDICINE PERFUSION LUNG SCAN INDICATION / CLINICAL INFORMATION: Shortness of breath. TECHNIQUE: 5.1 mCi of Tc-99m MAA were given by IV. COMPARISON: Chest radiograph dated 03/18/22. FINDINGS: PERFUSION: No significant perfusion defects. ADDITIONAL FINDINGS: None. IMPRESSION: 1. Low probability for pulmonary embolism. Signer Name: Darrin Alva MD Signed: 03/18/2022 1:14 PM Workstation Name: [id number] Transcribed By: DT Dictated By: Nato Alva MD Electronically Authenticated By: Nato Alva MD Signed Date/Time: 03/18/22 1314 DD/ 1313 TD/TT: [facility] [address] [place] [address] XRay Report Signed Patient: AMBROSE BANDA MR#: [id number] : 1990 Acct:[id number] Age/Sex: 31 / F ADM Date: 03/17/22 Loc: ED Attending Dr: Ordering Physician: SHARON CASAS NP Date of Service: 03/18/22 Procedure(s): XR chest routine 2V Accession Number(s): [id number] cc: SHARON CASAS NP Fluoro Time In Minutes: CHEST 2 VIEWS INDICATION / CLINICAL INFORMATION: Shortness of breath. COMPARISON: None available. FINDINGS: SUPPORT DEVICES: None. HEART / MEDIASTINUM: The heart size and pulmonary vasculature are normal. LUNGS / PLEURA: No significant pulmonary or pleural abnormality. No pneumothorax. ADDITIONAL FINDINGS: No significant additional findings. IMPRESSION: No acute findings. Signer Name: Ángel Ocampo MD Signed: 03/18/2022 9 :15 AM Workstation Name: [id number] Transcribed By: RT Dictated By: Ángel Ocampo MD Electronically Authenticated By: Ángel Ocampo MD Signed Date/Time: 03/18/22914 DD/ 3 TD/TT: - Differential Diagnosis Contusion, PE, pneumonia Critical care attestation.: If time is entered above; I have spent that time in minutes in the direct care of this critically ill patient, excluding procedure time. ED Disposition Clinical Impression: UTI (urinary tract infection), Leukocytosis, Thigh contusion Disposition: 01 HOME / SELF CARE / HOMELESS Is pt being admited?: No Does the pt Need Aspirin: No Condition: Stable Instructions: Urinary Tract Infection, Adult, Aeqm-[id number] Additional Instructions: Return to the emergency department should you develop worsening symptoms, inability to tolerate food or liquids, high fever or any other concerns Prescriptions: levoFLOXacin [Levaquin TAB] 500 mg PO QDAY #7 tablet Albuterol Mdi (or & Nicu Only) [ProAir HFA Inhaler] 2 puff IH QID PRN #8.5 gram PRN Reason: Shortness Of Breath Referrals: NURY GUEVARA MD [Primary Care Provider] - 3-5 Days Time of Disposition: 13:24
[2022-03-18 08:25] LABS: HCG Qualitative,Urine Negative (Negative)
[2022-03-18 09:19] LABS: Bacteria,Urine 2+ /HPF (Negative); Mucus,Urine 1+ /HPF
--- NOTE | 2022-03-18 09:19 | XRay Report ---
CHEST 2 VIEWS INDICATION / CLINICAL INFORMATION: Shortness of breath. COMPARISON: None available. FINDINGS: SUPPORT DEVICES: None. HEART / MEDIASTINUM: The heart size and pulmonary vasculature are normal. LUNGS / PLEURA: No significant pulmonary or pleural abnormality. No pneumothorax. ADDITIONAL FINDINGS: No significant additional findings. IMPRESSION: No acute findings. Signer Name: Ángel Ocampo MD Signed: 03/18/2022 9:15 AM Workstation Name: [id number]
[2022-03-18 09:24] LABS: Bilirubin,Urine Negative (Negative); Color,Urine Amber (Yellow)
[2022-03-18 09:26] LABS: Blood,Urine Large (Negative)
[2022-03-18 09:27] LABS: Urobilinogen,Urine < 2.0 mg/dL (<2.0)
[2022-03-18] MEDS ORDERED: cefTRIAXone/NS 1 GM/50 ML 1 GM/50 ML BAG IV ONE (10:15)
[2022-03-18 12:11] VITALS: BP 141/70
--- NOTE | 2022-03-18 13:18 | Nuclear Medicine Report ---
NUCLEAR MEDICINE PERFUSION LUNG SCAN INDICATION / CLINICAL INFORMATION: Shortness of breath. TECHNIQUE: 5.1 mCi of Tc-99m MAA were given by IV. COMPARISON: Chest radiograph dated 03/18/22. FINDINGS: PERFUSION: No significant perfusion defects. ADDITIONAL FINDINGS: None. IMPRESSION: 1. Low probability for pulmonary embolism. Signer Name: Darrin Alva MD Signed: 03/18/2022 1:14 PM Workstation Name: [id number]
== END 2022-03-18 16:42 | disposition home or self-care (01) ==
LOC: ED 19:36
DX: S70.11XA Contusion of right thigh, initial encounter (principal); N39.0 Urinary tract infection, site not specified; D72.829 Elevated white blood cell count, unspecified; F25.9 Schizoaffective disorder, unspecified; F17.219 Nicotine dependence, cigarettes, with unspecified nicotine-induced disorders; X58.XXXA Exposure to other specified factors, initial encounter; Y93.89 Activity, other specified; Y92.89 Other specified places as the place of occurrence of the external cause; Y99.8 Other external cause status
CPT/HCPCS: 36415; 71046; 78580; 80053; 81001; 81025; 85025; 85379; 96361; 96365; 99285; A9540; J0696; J7030